=== PATIENT | male | born 1955 | race Caucasian/White ===

== ENCOUNTER → 2017-01-24 | Outpatient (CLI) | payer OTHER | END | disposition home or self-care (01) | LOC: ROC 13:53 | PROVIDERS: ATTEND Radiology Radiation Oncology | DX: C61 Malignant neoplasm of prostate (principal) | CPT/HCPCS: 99212; G0463 ==

== ENCOUNTER → 2018-08-10 | Outpatient (CLI) | payer OTHER ==
[~2018-08-10] MED LIST: FENTANYL PF 100 MCG/2ML ONE; FLUMAZENIL 0.1 MG/1 ML, 5ML ONE; MIDAZOLAM 1 MG/ML, 5ML ONE; NALOXONE 1 MG/ML, 2ML ONE
== END | disposition home or self-care (01) ==
LOC: RAD 11:27
PROVIDERS: ATTEND Neurological Surgery
DX: M51.36 Other intervertebral disc degeneration, lumbar region (principal); M48.061 Spinal stenosis, lumbar region without neurogenic claudication
CPT/HCPCS: 72110; 72148; 99156; 99157; J2250; J3010; J2310

== ENCOUNTER 2019-12-17 11:57 | Outpatient (CLI) | payer OTHER ==
[2019-12-17] MEDS ORDERED: FENTANYL PF 100 MCG/2ML ONE (13:07)
[2019-12-17] MEDS ORDERED: MIDAZOLAM 1 MG/ML, 5ML ONE (13:07)
== END 2019-12-17 23:59 | disposition home or self-care (01) ==
LOC: RAD 11:57
PROVIDERS: ATTEND Neurological Surgery
DX: M54.5 Low back pain (principal); M54.12 Radiculopathy, cervical region; M47.892 Other spondylosis, cervical region; I10 Essential (primary) hypertension; G47.30 Sleep apnea, unspecified
CPT/HCPCS: 72050; 72110; 72141; 72148; 99156; 99157; J2250; J3010

== ENCOUNTER 2020-10-16 13:42 | Outpatient (CLI) | payer OTHER ==
[2020-10-16] MEDS ORDERED: NALOXONE 1 MG/ML, 2ML ONE (14:05)
[2020-10-16] MEDS ORDERED: FLUMAZENIL 0.1 MG/1 ML, 5ML ONE (14:05)
[2020-10-16] MEDS ORDERED: MIDAZOLAM 1 MG/ML, 5ML ONE (14:05)
[2020-10-16] MEDS ORDERED: FENTANYL PF 100 MCG/2ML ONE (14:05)
== END 2020-10-16 23:59 | disposition home or self-care (01) ==
LOC: RAD 13:42 → EDSTATUS 14:00 → RAD 23:59
PROVIDERS: ATTEND Internal Medicine
DX: G44.52 New daily persistent headache (NDPH) (principal)
CPT/HCPCS: 70544; 99156; 99157; J2250; J3010; J2310